=== PATIENT | male | born 1940 | race Caucasian/White ===

== ENCOUNTER 2016-12-16 10:30 | Inpatient (IN) | payer MEDICARE, BC ==
--- NOTE | 2016-12-06 12:52 | NUR ---
JOINT REPLACEMENT PREOP CLASS PATIENT ATTENDED JOINT REPLACEMENT PREOP CLASS. CASE MANAGEMENT CONTACT INFORMATION PROVIDED. EDUCATION WAS PROVIDED REGARDING WHAT TO EXPECT BEFORE, DURING AND AFTER SURGERY. INCLUDING: OVERVIEW OF ANATOMY AND PHYSIOLOGY HOSPITAL TREATMENT SCHEDULE THERAPY DEMONSTRATION CASE MANAGEMENT RESPONSIBILITIES DISCHARGE PLANNING EQUIPMENT NEEDS JOINT REPLACEMENT WORKBOOK ANTI-COAGULATION SURGERY STRONG NUTRITIONAL PROTOCOL DISCHARGE INSTRUCTIONS [facility] [place]IENT PORTAL, WITH INSTRUCTIONS CJR AND PREOP SURVERY PREOP BATHING- CHG GIVEN ALL PATIENT'S QUESTIONS ANSWERED TO THEIR SATISFACTION. PATIENTS AND COACHES ENCOURAGED TO CALL WITH ANY ADDITIONAL QUESTIONS OR CONCERNS. CM FOLLOWING FOR TRANSITIONAL CARE PLANNING NEEDS DURING HOSPITALIZATION.
--- NOTE | 2016-12-12 10:22 | NUR ---
Cancel Surgery per note from Rosa M Winkler MA, per patient request. Patient wishes to get other health issues resolved before proceeding with surgery. OR surgery scheduler notified.
[~2016-12-16] VITALS: Ht 171.4 cm; Wt 99.2 kg
[~2016-12-16 10:30] MED LIST: ACET-2930 PO; ASPI-1085 PO; BUSP15TA37 PO; GABA-338 PO; INSU300I SQ; LISI-126 PO; METF500T4 PO; SERT-88 PO; TRAM50TA4 PO; [UNRECOGNIZED DRUG - OTHER] PO
[2017-02-19] MEDS ORDERED: LISI2.5T2 PO (15:16)
--- NOTE | 2017-03-09 07:53 | HPF ---
CHIEF COMPLAINT Painful right total knee. HPI Mr. Ordaz is a 76-year-old gentleman who has had a right total knee replacement many years ago. He is complaining of increasing pain around this knee rated as moderate intensity. It is a burning pain which sometimes becomes quite severe. He has developed a persistent effusion and is reporting some weakness in the knee, X-rays have confirmed some lucency behind the anterior flange of the knee which could be consistent with loosening. Infection workup has revealed no evidence of infectious component to this. His pain is getting progressively worse and has become disabling in nature, limiting him in things that he enjoys doing. He has failed other conservative treatment and is being admitted for a revision arthroplasty of the right knee. PAST HISTORY Allergy to atenolol. PAST MEDICAL HISTORY 1. Diabetes. His last A1c was 7.7. 2. Hypertension. 3. Coronary artery disease. He has had previous intervention for this. 4. Chronic kidney disease, stage 3. Creatinine has been 1.9 to 2.1 range. GFR is generally in the 30s. 4. Depression/anxiety. 5. Generalized arthritis. CURRENT MEDICATIONS 1. Tylenol. 2. Aspirin. 3. BuSpar. 4. Neurontin. 5. Insulin. 6. Lisinopril. 7. Metformin. 8. Zoloft. 9. Ultram. 10. Isotonix. FAMILY HISTORY AND SOCIAL HISTORY Reviewed in Dr. Best's dictation in the chart. REVIEW OF SYSTEMS Negative for fever or chills, skin infections, rashes, numbness of extremity, seizures. He is not having any active anginal-type chest pain. No shortness of breath or cough. PHYSICAL EXAMINATION GENERAL: 76-year-old gentleman who is alert and oriented. He is well- nourished and well-developed. Answers questions appropriately. MUSCULOSKELETAL: Exam of the right knee shows 2+ effusion. He lacks about 5 degrees of extension and is flexing to 95 degrees. The knee is ligamentously stable to anterior-posterior drawer testing. There is no erythema. His old incision is well healed. His calf and thigh compartments are all soft and nontender. He is intact neurovascularly to the lower extremity. Has no pain with range of motion of his hip. X-RAYS Three views of the right knee show total knee arthroplasty with components in good alignment. There is some resorption under the anterior flange of the femoral component. 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 PLAN An infectious component has been ruled out. The patient has undergone medical clearance and a copy of the clearance is included in the chart. Dr. Barber has discussed the surgical procedure with Mr. Ordaz. Questions have been answered to his satisfaction. Risks, potential complications and plan have all been discussed. Will plan to proceed with a right total knee revision on 2016. NABILA
[2017-03-10] VITALS (28 sets, daily range): BP systolic 104–168; BP diastolic 56–95; PULSE 47–72; RESP 12–18; TEMP 96.7–98.3; O2SAT 94–100; Ht 171.4 cm; Wt 99.2 kg
--- OUTSIDE RECORDS SUMMARY | 2017-03-10 05:40 | XMS REPORT | Continuity of Care Document ---
Author Author [facility] Organization [facility] Address Unknown Phone Unavailable Support Name Relationship Address Phone DAIN VIZCAINO MD Caregiver [address] [place] [address] Unavailable WEN FRANCOIS DO Caregiver [address] [place] [address] Unavailable EVELYN FLYNN Next Of Kin [address] [place] [address] Insurance Providers Guarantor Ortiz Ordaz Address [address] [address] Email DENIED/NO TO PORTAL Payer Medicare Policy Number [id number] Subscriber's Name Ortiz Ordaz Relationship 18 Self Effective Date 04 Payer [facility] Policy Number [id number] Subscriber's Name Ortiz Ordaz Relationship 18 Self Group Number [id number] Group Name PLANF Effective Date 86 Advance Directives Directive Response Recorded Date/Time Ordered Resuscitation Status Full Code 05/30/16 10:09am Resuscitation Documents on File No 06/02/16 6:19am DPOA for Healthcare Only No 06/02/16 6:19am Living Will No 06/02/16 6:19am Problems Active Problems Medical Problem Onset Date Status Laceration Unknown Acute Laceration Unknown Acute Medications Current Home Medications Medication Dose Units Route Directions Days Qty Instructions Start Date Aspirin (Aspirin Ec) 81 Mg Tablet. 1 Tab Oral Daily DO NOT CHEW, CRUSH OR BREAK TABLET 05/30/16 Buspirone Hcl (Buspar) 15 Mg Tablet 15 Mg Oral Twice A Day Gabapentin 300 Mg Capsule 1 Cap Oral Three Times A Day 120 Lisinopril 20 Mg Tablet 20 Mg Oral Daily 02/26/10 Metformin Hcl 500 Mg Tablet 1 Tab Oral Twice A Day 60 05/30/16 Ondansetron Hcl (Zofran) 4 Mg Tablet 4 Mg Oral Every 6 Hours for Nausea 10 Tablet 06/02/16 Oxycodone Hcl/Acetaminophen (Percocet 5-325 Mg Tablet) 5-325 Tablet 5-10 Mg Oral Every 4 Hours Prn 60 Tablet 06/02/16 Sertraline Hcl (Zoloft) 100 Mg Tablet 50 Mg Oral Daily 12/29/12 Sitagliptin Phosphate (Januvia) 25 Mg Tablet 1 Tab Oral Daily 03/10 Thioctic Acid (Alpha Lipoic Acid) 100 Mg Capsule 100 Mg Oral Daily 03/15/14 Past Home Medications Medication Directions Ordered Status Aspirin (Aspirin Enteric Coated) 325 Mg Tablet.dr, 81 Mg Oral Daily 02/25/10 Discontinued Clopidogrel Bisulfate (Plavix) 75 Mg Tablet, 75 Mg Oral Daily 03/10/12 Discontinued Clopidogrel Bisulfate (Plavix) 75 Mg Tablet, 75 Mg Oral Daily 02/25/10 Discontinued Cyclobenzaprine Hcl 10 Mg Tablet, 10 Mg Oral Three Times A Day 12/12/10 Discontinued Fexofenadine Hcl (Loan) 180 Mg Tablet, 180 Mg Oral Daily 01/06/11 Discontinued Gabapentin 300 Mg Capsule, 300 Mg Oral Three Times A Day 03/10/12 Discontinued Glucosamine Hcl/Chondr Quintana A Na (Glucosamin/Chondrot Tb) 1 Tab Tablet, 2 Tab Oral Daily 02/25/10 Discontinued Hydrocodone Bit/Acetaminophen (Lortab 7.5) 1 Udtab Tablet, 1 - 2 Udtab Oral Every 6 Hours 12/12/10 Discontinued Naproxen Sodium (Aleve) 220 Mg Tablet, 220 Mg Oral As Needed 11/11/11 Discontinued Pregabalin (Lyrica) 75 Mg Capsule, 75 Mg Oral Twice A Day 12/29/12 Discontinued Ranitidine Hcl (Zantac 75) 75 Mg Tablet, 75 Mg Oral Daily 12/12/10 Discontinued Sertraline Hcl (Zoloft) 50 Mg Tablet, 50 Mg Oral Daily 02/26/10 Discontinued Sildenafil Citrate (Viagra) 100 Mg Tablet, 100 Mg Oral Daily 01/06/11 Discontinued Social History Social History Problem Response Recorded Date/Time Onset Date Status Reason for Hospitalization Left shoulder arthroscopy 06/02/2016 9:32am Not Applicable Not Applicable Chewing Tobacco Status No 03/15/2014 12:37pm Not Applicable Not Applicable Hx Substance Use No 06/02/2016 6:30am Not Applicable Not Applicable Hx Alcohol Use No 06/02/2016 6:30am Not Applicable Not Applicable Has the pt used tobacco in the last 12 months No 06/02/2016 6:30am Not Applicable Not Applicable Tobacco Usage none 03/15/2014 2:57pm Not Applicable Not Applicable Query Response Start Date Stop Date Smoking Status Never smoker Hospital Discharge Instructions Instructions: Care Instructions: Reason for Hospitalization: Left shoulder arthroscopy I was in the hospital because (patient own words): "left shoulder repair" Discharge Diet: 2000 darling ADA Discharge Activity: use sling, see post op sheet. Pending Lab / Results: No Pending Lab Condition at time of discharge: Good Plan of Care Discharge Date 06/02/16 10:52am Instructions/Education Provided [facility] Rotator Cuff Prescriptions See Medication Section Functional Status Query Response Date Recorded Ability to complete ADL's impeded by No change June 02, 2016 6:19am Allergies, Adverse Reactions, Alerts Allergen Type Severity Reaction Status Last Updated Atenolol Adverse Reaction Unknown LOW BP AND PULSE Active 03/15/14 Immunizations Query Response on File Recorded Date/Time Hx Influenza Vaccination Y fall 201406/02/16 6:30am Hx Pneumococcal Vaccination Y DR. FRANCOIS HAS DATE 06/02/16 6:30am Hx Tetanus, Diptheria, Pertussis Yes 03/15/14 1:20pm Hx Influenza Vaccination Y fall 201406/02/16 6:30am Hx Tetanus, Diptheria, Pertussis Yes 03/15/14 1:20pm Vital Signs Acute Vital Signs Vital Response Date/Time Temperature (Fahrenheit) 97.6 deg F (96.8 - 99.1) 06/02/2016 9:09am Temperature (Calculated Celsius) 36.59849 degrees C (36.0 - 37.3) 06/02/2016 9:09am Temperature Source Temporal 06/02/2016 9:09am Pulse Rate (adult) 68 bpm (60 - 100) 06/02/2016 10:45am Respiratory Rate 16 breaths/min (10 - 20) 06/02/2016 10:45am O2 Sat by Pulse Oximetry 98 % (90 - 100) 06/02/2016 10:45am Oxygen Delivery Method Room Air 06/02/2016 7:10am Oxygen Delivery Method Room Air 06/02/2016 10:45am Blood Pressure 127/68 mm Hg 06/02/2016 10:45am Blood Pressure Source Automatic Cuff 06/02/2016 10:45am Height (Feet) 5 feet 06/02/2016 5:45am Height (Inches) 8.00 inches 06/02/2016 5:45am Weight (Kilograms) 96.900 kg 06/02/2016 5:45am Body Mass Index (BMI) 32.5 06/02/2016 5:45am Results Laboratory Results Test Name Result Units Flags Reference Collection Date/Time Result Date/ Time Comments Body Fluid Color YELLOW 05/07/2016 2:20pm 05/07/2016 4:07pm Body Fluid Turbidity SLIGHTLY CLOUDY 05/07/2016 2:20pm 05/07/2016 4 :07pm Body Fluid Total Nucleated Cells 8149 /MM3 05/07/2016 2:20pm 2015 4:07pm Body Fluid RBC 95204 /MM3 05/07/2016 2:20pm 05/07/2016 4:07pm Body Fluid Neutrophils 60 % 05/07/2016 2:20pm 05/07/2016 4:07pm Body Fluid Lymphocytes 40 % 05/07/2016 2:20pm 05/07/2016 4:07pm Body Fluid Monocytes 0 % 05/07/2016 2:pm 05/07/2016 4:07pm Body Fluid Eosinophils 0 % 05/07/2016 2:20pm 05/07/2016 4:07pm Body Fluid Basophils 0 % 05/07/2016 2:20pm 05/07/2016 4:07pm Body Fluid Other Cells (%) 0 % 05/07/2016 2:20pm 05/07/2016 4:07pm Body Fluid Type SYNOVIAL FLUID 05/07/2016 2:20pm 05/07/2016 4:07pm White Blood Count 8.2 T/MM3 4.5-11.0 06/02/2016 6:10am 06/02/2016 6: 21am Red Blood Count 4.86 M/MM3 4.50-5.90 06/02/2016 6:10am 06/02/2016 6: 21am Hemoglobin 14.4 GM/DL 13.5-17.5 06/02/2016 6:10am 06/02/2016 6:21am Hematocrit 44.8 % 41-53 06/02/2016 6:10am 06/02/2016 6:21am Mean Corpuscular Volume 92.2 UM3 80-100 06/02/2016 6:10am 06/02/2016 6: 21am Mean Corpuscular Hemoglobin 29.6 UUG 26-34 06/02/2016 6:2015 6:21am Mean Corpuscular Hemoglobin Concent 32.1 GM/DL 31-37 06/02/2016 6:06/02/2016 6:21am RDW Standard Deviation 45.4 FL 36.9-50.2 06/02/2016 6:06/02/2016 6 :21am Platelet Count 201 T/MM3 130-400 06/02/2016 6:06/02/2016 6:21am Mean Platelet Volume 9.9 UM3 9.4-12.4 06/02/2016 6:06/02/2016 6: 21am Neutrophils (%) (Auto) 51.6 % 33-66 06/02/2016 6:06/02/2016 6: 21am Lymphocytes (%) (Auto) 36.3 % 23-45 06/02/2016 6:06/02/2016 6: 21am Monocytes (%) (Auto) 8.6 % 0-9.0 06/02/2016 6:06/02/2016 6:21am Eosinophils (%) (Auto) 2.7 % 0-4 06/02/2016 6:06/02/2016 6:21am Basophils (%) (Auto) 0.7 % 0-2 06/02/2016 6:06/02/2016 6:21am Immature Granulocyte % (Auto) 0.1 % 0.0-0.5 06/02/2016 6:2015 6:21am Absolute Neutrophils (auto) 4.2 T/MM3 1.8-7.7 06/02/2016 6:2015 6:21am Absolute Lymphocytes (auto) 3.0 T/MM3 1-4.8 06/02/2016 6:2015 6:21am Absolute Monocytes (auto) 0.7 T/MM3 0-0.8 06/02/2016 6:06/02/2016 6:21am Absolute Eosinophils (auto) 0.2 T/MM3 0-0.5 06/02/2016 6:2015 6:21am Absolute Basophils (auto) 0.1 T/MM3 0-0.2 06/02/2016 6:10a06/02/2016 6:21am Absolute Immature Granulocyte (auto 0.01 T/MM3 0.00-0.03 06/02/2016 6: 10a06/02/2016 6:21am Icterus Index < 2 0-7 06/02/2016 6:06/02/2016 6:27am Chemistry Specimen Hemolysis 34 H 0-25 06/02/2016 6:06/02/2016 6: 27am 26-70: Specimen Exhibited Slight Hemolysis - can falsely elevate K (Potassium) and Urine Protein. Turbidity < 20 0-20 06/02/2016 6:06/02/2016 6:27am Sodium Level 146 MEQ/L H 134-144 06/02/2016 6:06/02/2016 6:27am Potassium Level 5.2 MEQ/L H 3.6-5 06/02/2016 6:10a06/02/2016 6:27am Chloride Level 105 MEQ/L 98-107 06/02/2016 6:06/02/2016 6:27am Carbon Dioxide Level 29 MEQ/L 22-30 06/02/2016 6:06/02/2016 6: 27am Anion Gap 12 MEQ/L 5-15 06/02/2016 6:06/02/2016 6:27am Blood Urea Nitrogen 36.0 MG/DL H 9-20 06/02/2016 6:06/02/2016 6: 27am Creatinine 1.6 MG/DL H 0.8-1.5 06/02/2016 6:06/02/2016 6:27am BUN/Creatinine Ratio 23 RATIO 6-26 06/02/2016 6:06/02/2016 6:27am Glomerular Filtration Rate Calc 42 06/02/2016 6:06/02/2016 6: 27am Glucose Level 108 MG/DL 75-110 06/02/2016 6:06/02/2016 6:27am Calculated Osmolality 290 MOSM/KG H 261-280 06/02/2016 6:2015 6:27am Calcium Level 9.4 MG/DL 8.4-10.2 06/02/2016 6:10a06/02/2016 6:27am Total Bilirubin 0.50 MG/DL 0.20-1.30 06/02/2016 6:10am 06/02/2016 6: 27am Alkaline Phosphatase 58 U/L 38-126 06/02/2016 6:10a06/02/2016 6:27am Total Protein 7.4 G/DL 6.3-8.2 06/02/2016 6:10am 06/02/2016 6:27am Albumin 4.3 G/DL 3.5-5.0 06/02/2016 6:10a06/02/2016 6:27am Globulin 3.1 G/DL 2.4-3.6 06/02/2016 6:10am 06/02/2016 6:27am Albumin/Globulin Ratio 1.4 RATIO 1.1-2.2 06/02/2016 6:10a06/02/2016 6 :27am Aspartate Amino Transf (AST/SGOT) 20 U/L 17-59 06/02/2016 6:10am 2015 6:27am Alanine Aminotransferase (ALT/SGPT) 19 U/L L 21-72 06/02/2016 6:10am 05/2016 6:27am Glucometer 114 mg/dL H 75-110 06/02/2016 8:45am 06/02/2016 9:17am Microbiology Results Procedure Source Organism/Result Collection Date/Time Result Date/Time Result Status Body Fluid Culture Synovial Fluid, Right Knee NO GROWTH AFTER 5 DAYS 2015 2:20pm 05/12/2016 2:40pm Final Procedures Procedure Status Date Provider(s) MRI JOINT UPR EXTREM W/O DYE Completed 03/25/16 CHEST X-RAY 2VW FRONTAL&LATL Completed 04/25/16 CULTURE OTHR SPECIMN AEROBIC Completed 05/07/16 BODY FLUID CELL COUNT Completed 05/07/16 Arthroscopy of left shoulder Completed 06/02/16 DAIN VIZCAINO MD Encounters Encounter Location Arrival/Admit Date Discharge/Depart Date Attending Provider Departed [facility] 06/02/16 5:46am 06/02/16 10 :52am DAIN VIZCAINO MD [facility] 05/07/16 2:39pm FIDENCIO MONTEZ MD [facility] 04/25/16 8:16am WEN FRANCOIS DO [facility] 03/25/16 7:30am WEN FRANCOIS DO
[2017-03-10] MEDS ORDERED: METOCLOPRAMIDE 10mg/2ml INJECTION IV ONE (06:00)
[2017-03-10] MEDS ORDERED: FAMOTIDINE 20mg IVPB 50 ML IV ONE (06:00)
[2017-03-10] MEDS ORDERED: LIDOCAINE 1% (10mg/ml) 2ml SDV SQ ONE (06:00)
[2017-03-10 06:10] LABS: BASOPHILS # (AUTO) 0.1 T/MM3 (0-0.2); BASOPHILS % (AUTO) 0.6 % (0-2); EOSINOPHILS # (AUTO) 0.2 T/MM3 (0-0.5); EOSINOPHILS % (AUTO) 2.6 % (0-4); HCT - HEMATOCRIT 41.2 % (41-53); HGB - HEMOGLOBIN 13.9 GM/DL (13.5-17.5); IMMATURE GRANULOCYTE # (AUTO) 0.03 T/MM3 (0.00-0.03); IMMATURE GRANULOCYTE % (AUTO) 0.3 % (0.0-0.5); LYMPHOCYTES # (AUTO) 2.6 T/MM3 (1-4.8); LYMPHOCYTES % (AUTO) 29.1 % (23-45); MEAN CORPUSCULAR HGB 29.3 UUG (26-34); MEAN CORPUSCULAR HGB CONC(MCHC 33.7 GM/DL (31-37); MEAN CORPUSCULAR VOLUME 86.9 UM3 (80-100); MEAN PLATELET VOLUME 9.9 UM3 (9.4-12.4); MONOCYTES # (AUTO) 0.9 T/MM3 (0-0.8); MONOCYTES % (AUTO) 10.2 % (0-9.0); NEUTROPHILS % (AUTO) 57.2 % (33-66); RED BLOOD COUNT 4.74 M/MM3 (4.50-5.90); WBC - WHITE BLOOD COUNT 8.8 T/MM3 (4.5-11.0)
[2017-03-10 06:17] LABS: ALBUMIN 4.5 G/DL (3.5-5.0); ALBUMIN/GLOBULIN RATIO 1.4 RATIO (1.1-2.2); ALKALINE PHOSPHATASE 66 U/L (38-126); ALT (SGPT) 36 U/L (21-72); ANION GAP 15 MEQ/L (5-15); AST (SGOT) 16 U/L (17-59); BUN/CREATININE RATIO 24 RATIO (6-26); CALCIUM 9.7 MG/DL (8.4-10.2); CHLORIDE 107 MEQ/L (98-107); CO2 - CARBON DIOXIDE 23 MEQ/L (22-30); CREATININE 1.6 MG/DL (0.8-1.5); GLOMERULAR FILTRATION RATE 42; GLUCOSE 118 MG/DL (75-110); POTASSIUM 4.9 MEQ/L (3.6-5); SODIUM 145 MEQ/L (134-144); TOTAL PROTEIN 7.7 G/DL (6.3-8.2)
[2017-03-10] MEDS ORDERED: GENTAMICIN 80 MG/2 ML INJECTION ONE (06:32)
--- NOTE | 2017-03-10 06:32 | PDHPBRIEF ---
History and Physical Update Date DATE: 03/10/17 TIME: 06:31 I evaluated this patient and found no changes in the history and clinical exam findings. The recommendations and treatment plan is also unchanged from the previous documentation. OLIVA JURADO March 10, 2017 06:31
--- NOTE | 2017-03-10 06:49 | ANESPREOP ---
Anesthesia Record Date and Time DATE: 03/10/17 TIME: 06:47 Proposed Surgical Procedure REV RT TKA Allergies: Coded Allergies: atenolol (Verified Adverse Reaction, Unknown, LOW BP AND PULSE, 03/10/17) Ht/Wt/BMI Height: 5 ' 7.50 " Weight: 95.100 kg BMI: 32.4 kg/m2 Vital Signs Date Time Temp Pulse Resp B/P Pulse Ox O2 Delivery O2 Flow Rate FiO2 03/10/17 05:51 97.6 59 14 150/85 95 Room Air Medications Acetaminophen/Diphenhydramine (Tylenol Pm Ex-Strength Caplet) 1 Each Tablet, 1 TAB PO HS PRN for SLEEP, (Reported) Last Taken: on Unknown Date & Time Aspirin *EC* (Aspirin EC) 81 Mg Tablet.dr, 1 TAB PO PM, (Reported) DO NOT CHEW, CRUSH OR BREAK TABLET Last Taken: on 03/03/17 Buspirone Hcl (Buspar) 15 Mg Tablet, 15 MG PO BID, ( Reported) Last Taken: on 03/09/17 1800 Gabapentin (Gabapentin) 300 Mg Capsule, 300 MG PO ACBL, (Reported) TAKES 300 MG IN AM AND NOON, 600 MG IN PM Last Taken: on 03/09/17 1200 Gabapentin (Gabapentin) 300 Mg Capsule, 600 MG PO PM, (Reported) Last Taken: on 03/09/17 1800 Insulin Glargine,Hum.rec.anlog (Toujeo Solostar ) 300 Unit/1 Ml Insuln.pen, 25 UNIT SQ AM, (Reported) Last Taken: on 03/09/17 0700 Lisinopril (Lisinopril) 2.5 Mg Tablet, 2.5 MG PO DAILY, (Reported) Last Taken: on 03/09/17 0700 Metformin HCl (Metformin HCl) 500 Mg Tablet, 1 TAB PO BID, (Reported) Last Taken: on 03/09/17 1800 Sertraline Hcl (Zoloft) 100 Mg Tablet, 50 MG PO DAILY, (Reported) Last Taken: on 03/09/17 0700 Tramadol HCl (Tramadol HCl) 50 Mg Tablet, 2 TAB PO BID, (Reported) Last Taken: on 03/09/17 1800 Currently on Beta Rasheed: No Medical/Surgical History Anesthesia PMH: Reports: *Diabetes, *Hypertension, Arthritis, Renal Disease ( RENAL INSUFFICIENCY-DR ROBERSON), Denies: *Angina, *Dyspnea, *UT, Anesthesia Reactions (NO AIRWAY ISSUES KNOWN), Asthma, CHF, COPD, CVA/Stroke/TIA, Cancer, Clotting Problems, Deep Vein Thrombosis, Glaucoma, Headaches, Hepatitis, Hiatal Hernia, Malignant Hyperthermia, Pneumonia, Reflux, Rheumatic Fever, Seizures, Sleep Apnea, Thyroid Disease, Tuberculosis Smoking Status: Never smoker Has pt. smoked today?: No Use Chewing Tobacco?: No Second Hand Exposure: No Substance Use Type: does not use Alcohol Intake: none Past Surgical History Orthopedic Surgeries: Yes - RT RCR, R TKA; LT RCR Abdominal Surgeries: Yes - RT INGUINAL HERNIA Genitourinary Surgeries: No Cardiac Surgeries: Yes - HEART CATH WITH STENTS Endocrine Surgeries: No Reproductive Surgeries: No Neurological Surgeries: Yes - LAMINECTOMY Ear Surgeries: No Nose Surgeries: No Throat Surgeries: Yes - TONSILS Other Surgeries: Yes - COLONOSCOPY, UPPER BLEPHAROPLASTY; CATARACT OD Anesthesia Adverse Reactions: FOUND none Family Hx of Anesthesia Advers: none Hx of Motion Sickness: No Pertinent Findings Laboratory Tests 03/10/17 06:02 EKG Rhythm: Sinus Rhythm Physical Exam Respiratory: Lungs clear Cardiovascular: FOUND Regular rate, rhythm Airway Assessment Mallampati Score: II TMD: 3 Fingerbreadths Neck Extension: Good Overall Assessment: No Airway Concerns ASA: 3 Plan Regional: Spinal Discussion Discussed risks/options/alternatives of anesthesia and questions answered. Patient consents. Nursing pain assessment noted. Attestation Statement Prior to the delivery of any anesthetic medication, I examined the patient, developed the plan, obtained the patient's consent and discussed the risk and benefits of the procedure with the patient/guardian. REENA ARTEAGA March 10, 2017 06:49
[2017-03-10] MEDS ORDERED: VANCOMYCIN 1 GRAM INJECTION ONE ×2 (06:50→09:34)
[2017-03-10] MEDS ORDERED: NOZIN NASAL SWAB NS ONE ×2 (07:00→10:45)
[2017-03-10] MEDS ORDERED: NORMAL SALINE 1,000 ML IV ONE (07:00)
[2017-03-10] MEDS ORDERED: ONDANSETRON 4mg/2ml INJECTION IV ONE (07:00)
[2017-03-10] MEDS ORDERED: ACETAMINOPHEN 500 MG TABLET PO ONE (07:00)
[2017-03-10] MEDS ORDERED: MIDAZOLAM 2mg/2ml INJECTION ONE (07:02)
[2017-03-10] MEDS ORDERED: FENTANYL 100mcg/2ml INJECTION ONE (07:03)
[2017-03-10] MEDS ORDERED: CEFAZOLIN 2 GM VIAL IV ONE (07:30)
[2017-03-10] MEDS ORDERED: EPINEPHRINE 0.25 MG, BUPIVACAINE 0.25% 75 MG, MORPHINE SULFATE 15 MG in NORMAL SALINE 3... INJ ONE (08:00)
[2017-03-10] MEDS ORDERED: TRANEXAMIC ACID 1000 MG/10 ML TOP ONE (08:30)
[2017-03-10] MEDS ORDERED: ROPIVACAINE 0.5% (5mg/ml) 30ml INJ ONE (08:51)
[2017-03-10] MEDS ORDERED: ONDANSETRON 4mg/2ml INJECTION IV PRN ×2 (09:00→10:45)
[2017-03-10] MEDS ORDERED: FENTANYL 100mcg/2ml INJECTION IV PRN (09:00)
[2017-03-10] MEDS ORDERED: PROPOFOL 500mg 50 ML IV ONE ×2 (09:44→10:08)
--- NOTE | 2017-03-10 09:58 | NUR ---
CM CM ATTEMPTED VISIT. PT IS AT PROCEDURE. NO FAMILY PRESENT IN THE ROOM. CM CONTACT INFORMATION IS LEFT AT THE BEDSIDE.
[2017-03-10] MEDS ORDERED: PROPOFOL 500mg 100 ML IV ONE (10:07)
[2017-03-10] MEDS ORDERED: SENNOSIDES 8.6 MG TABLET PO PRN (10:45)
[2017-03-10] MEDS ORDERED: DiphenhydrAMINE 25 MG CAPSULE PO PRN (10:45)
[2017-03-10] MEDS ORDERED: PRN ORDERS MC (10:45)
[2017-03-10] MEDS ORDERED: LORAZEPAM 1 MG TABLET PO PRN (10:45)
[2017-03-10] MEDS ORDERED: DiphenhydrAMINE 50 MG/ML INJECTION IV PRN (10:45)
--- NOTE | 2017-03-10 11:06 | ANESPD ---
Peripheral Nerve Blockade Physician: Cesar Barber MD Date: 03/10/17 Discussion Discussed risks/options/alternatives of anesthesia and questions answered. Patient consents. Nursing pain assessment noted. Block Start: 10:43 Block Stop: 10:53 Block Employed: Adductor Canal Indication: post-operative pain Approach: right side confirmed Position: supine Patient: Consent, risks/benefits discussed, Informed, post block act. discussed Monitors: EKG, SpO2, NIBP Initial Vital Signs First Documented Vital Signs Date Time Temp Pulse Resp B/P Pulse Ox O2 Delivery O2 Flow Rate FiO2 03/10/17 05:51 97.6 59 14 150/85 95 Room Air Post Vital Signs Vital Signs Date Time Temp Pulse Resp B/P Pulse Ox O2 Delivery O2 Flow Rate FiO2 03/10/17 05:51 97.6 59 14 150/85 95 Room Air Initial Pain Score: 0 Post Block Score: 0 Prep: chlorhexadine/ETOH Ultrasound Used?: Yes Injectate Ropivacaine (%): 0.5 Ropivacaine (mL): 15 Was Epi 1:200,000 Used?: No Injection Injection made incrementally with constant monitoring and aspiration every [3] ml. REENA ARTEAGA March 10, 2017 11:06
--- NOTE | 2017-03-10 11:32 | ANESPO ---
Post-Op Note Date 03/10/17 Time: 11:30 Status Pt Participated in Evaluation: Pt participated in person Vital Signs Date Time Temp Pulse Resp B/P Pulse Ox O2 Delivery O2 Flow Rate FiO2 03/10/17 11:21 16 03/10/17 11:10 48 106/60 97 Nasal Cannula 2.00 03/10/17 10:43 98.3 Respiratory Function: Airway patent, Regular respirations Cardiovascular Function: Regular pulse Mental Status: Alert/oriented Pain Level Intensity: 3 Hydration: IV infusing Complications during Recovery None apparent Follow-Up Instructions Instructions Per Surgeon BREN RENNER CRNA March 10, 2017 11:32
--- NOTE | 2017-03-10 11:35 | DI ---
Indication: ITS.REASON: POSTOP right knee revision PROCEDURE: KNEE RIGHT 2 VIEW: Encounter: Initial Comparison: January 19, 2013 Findings: Postoperative changes of right total knee revision are seen with extended femoral and tibial components. There is expected postoperative subcutaneous gas. No evidence of hardware failure or acute fracture. No retained radiopaque surgical instruments or sponges. Overlying material causing artifact. Impression: Revision right total knee prosthesis without evidence of immediate complication. .
--- NOTE | 2017-03-10 11:41 | NUR ---
ARRIVAL TO FLOOR THE PT ARRIVED TO THE FLOOR AT THIS TIME. PT TRANSFERRED SELF FROM THE CART TO THE BED WITH MINIMAL ASSISTANCE. POST OP VITAL SIGNS STARTED, PT IS BRADYCARDIC IN THE 50S AT THIS TIME. PER REPORT FROM OYSTER OPENER, PT HAD DECREASED HEART RATE IN THE 50S PRE-OP. PT IS ACCOMPANIED BY HIS , PRESENT IN THE ROOM AT THIS TIME. WILL CONTINUE TO MONITOR.
[2017-03-10] MEDS: NORMAL SALINE 1,000 ML IV SCH ×2 (12:01→16:49)
--- NOTE | 2017-03-10 12:02 | PDPROCED ---
Immediate Operative Note DATE: 03/10/17 TIME: 12:01 Preop Diagnosis: PAINFUL RIGHT TOTAL KNEE ARTHROPLASTY Postop Diagnosis: Painful right TKA Surgical Procedures: Other (Right total knee revision. All components.) Surgeon: Elisabeth Metal Polisher: HECTOR Pillai Anesthesia: Regional Complications: NONE OLIVA JURADO March 10, 2017 12:02
[2017-03-10] MEDS: OXYCODONE I.R. 5 MG TABLET PO PRN ×3 (12:13→17:18)
--- NOTE | 2017-03-10 12:22 | NUR ---
PAIN CONTROL PT REPORTING PAIN IN RIGHT KNEE, RATING A 6/10 AT THIS TIME. PT HAS TOLERATED JELLO AND CRACKERS WELL, DENIES NAUSEA. PT WAS GIVEN ROXICODONE 10MG. NO OTHER CONCERNS NOTED. WILL CONTINUE TO MONITOR.
[2017-03-10] MEDS: GABAPENTIN 300 MG CAPSULE PO SCH (12:46)
[2017-03-10] MEDS: ACETAMINOPHEN 325 MG TABLET PO SCH ×3 (12:46→20:58)
[2017-03-10] MEDS: NOZIN NASAL SWAB NS SCH ×2 (14:05→20:58)
[2017-03-10] MEDS: CEFAZOLIN 2 G in NORMAL SALINE 100 ML IV SCH ×2 (15:24→23:47)
[2017-03-10] MEDS: INSULIN ASPART 100 UNIT/ML SQ PRN ×2 (17:17→20:58)
--- NOTE | 2017-03-10 17:49 | OPNOTEF ---
DATE OF OPERATION 03/10/2017 PREOPERATIVE DIAGNOSIS Painful right total knee arthroplasty. 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 PROCEDURE Right total knee arthroplasty revision. SURGEON Shira Barber MD INTELLIGENCE OPERATIONS SPECIALIST Cesar Escamilla PA-C COMPLICATIONS None. ANESTHESIA Spinal. DESCRIPTION OF PROCEDURE Mr. Ordaz and his right knee were identified and marked in the preoperative holding area. He was brought back to the operative suite and placed supine on the operating table. After spinal anesthetic was administered the right lower extremity was then prepped and draped in my normal sterile fashion. Timeout was performed. Mr. Ordaz had limited motion from about 10 degrees to 90 degrees and a large effusion. Sharp dissection was made anteriorly followed by a medial peripatellar arthrotomy. He had abundant scar tissue which was removed at the anterior knee. No signs of infection. While dissecting the soft tissue around the patella the patella easily essentially fell off from the bone. I found similar results when removing the femoral and tibial components. It took just minimal dissection for the components to come off easily. Neither component had any significant amount of cement adhered. Once cement was removed from remaining bone, the tibia had very minimal bone loss and. The femur had bone loss mainly because there was a large cyst in the lateral femoral condyle. After further releases were performed, to allow for more exposure I did make a freshen-up cut with an IM sabine over the tibia. The tibia was incised and we did not need an offset. We then moved to the femur. Again, the IM sabine was placed up to a 17 and a distal femoral cut was freshened up. It looked like laterally we would need a 5-mm augment. Also the same posterolaterally. With a 100-mm 17 stem, size 4 trial components were placed with the augments as described. This had a good fit with a PS 9-mm spacer. It lacked about 3 degrees of full extension but flexion was past 115 degrees. The knee was nice and stable. The patella was then resurfaced and drilled again for a 32 button. The patella tracked well. After thorough irrigation the bone was prepared for cementing. The components were cemented into place with the 100-mm stem on the tibia and 100-mm stem also on the femur. The tibia and femur were both size 4. The patella was size 32. After the cement had cured I trialed with a PS Plus and liked this a little better so we ended up placing a 9-mm PS Plus spacer. A very small amount of the tibial tubercle attachment from the patellar tendon did rip during the exposure. I repaired this back down to a bone hole using FiberWire. Betadine solution was used as well as IrriSept during the case and joint cocktail was injected into the soft tissues throughout the case. 1 g TXA was placed into the knee and allowed to sit for five minutes into the case. 1 g vancomycin powder was placed into the knee and the capsulotomy was closed with #1 Vicryl. I then left my bilingual sales assistant to close the subcutaneous tissue with 2-0 Vicryl followed by running 4-0 Monocryl in skin and a sterile dressing. He will be taken to the recovery room under the care of Anesthesia. He tolerated the procedure well. There were no complications. NABILA
--- NOTE | 2017-03-10 18:57 | NUR ---
PROGRESS NOTE PT ALERT AND ORIENTED X3. VITAL SIGNS STABLE, PT IS ON RA. THE PT HAS REQUIRED 2 DOSES OF ROXICODONE SINCE ARRIVING TO THE FLOOR FOR INCREASED PAIN. THE PT HAD DIFFICULTY CONTROLLING PAIN UPON ARRIVAL BUT HAS TOLERATED THE ROXICODONE WELL. PT HAS HAD ADEQUATE URINE OUTPUT AND HAS TOLERATED A CONSISTENT CARB DIET. THE PT IS UP WITH A X1 ASSIST, GAIT BELT AND WALKER. PT IS RESTING IN THE RECLINER AT THIS TIME, WILL CONTINUE TO MONITOR.
[2017-03-10] MEDS ORDERED: GABAPENTIN 300 MG CAPSULE PO SCH (20:00)
[2017-03-10] MEDS: ASPIRIN *EC* 325mg TABLET PO SCH (20:58)
[2017-03-10] MEDS ORDERED: SENNOSIDES 8.6 MG TABLET PO SCH (22:00)
--- NOTE | 2017-03-10 22:10 | HPF ---
Support Level Std System Name [id number] Script on [id number] Fanta IP: [id number] System Description Inbound ITS Reports Script System Group [employer] Scripts Chas[employer] Client Direct Web Service Consumer Version 1.0.796 Last Heartbeat 03/10/2017 11:08:22 PM NABILA
[2017-03-11] MEDS: OXYCODONE I.R. 5 MG TABLET PO PRN ×3 (01:08→12:42)
[2017-03-11 03:56] VITALS: BP 151/80; PULSE 60; RESP 20; TEMP 97.9; O2SAT 97
--- NOTE | 2017-03-11 04:12 | NUR ---
SHIFT SUMMARY PT ALERT AND ORIENTED X3, VITAL SIGNS ARE STABLE ON ROOM AIR. DENIES C/P, N/V AND SOA. PT HAS AMBULATED ONCE ON THIS SHIFT AND TO AND FROM THE BATHROOM. PT HAS HAD ADEQUATE URINE OUTPUT. PT HAS SLEPT WELL THROUGH THE NIGHT THEN MOVED TO THE CHAIR IN EARLY A.M. WILL CONTINUE TO MONITOR.
[2017-03-11 04:47] LABS: HCT - HEMATOCRIT 39.1 % (41-53); HGB - HEMOGLOBIN 12.7 GM/DL (13.5-17.5); MEAN CORPUSCULAR HGB 28.5 UUG (26-34); MEAN CORPUSCULAR HGB CONC(MCHC 32.5 GM/DL (31-37); MEAN CORPUSCULAR VOLUME 87.7 UM3 (80-100); MEAN PLATELET VOLUME 11.3 UM3 (9.4-12.4); RED BLOOD COUNT 4.46 M/MM3 (4.50-5.90); WBC - WHITE BLOOD COUNT 12.7 T/MM3 (4.5-11.0)
[2017-03-11 04:56] LABS: ANION GAP 16 MEQ/L (5-15); BUN/CREATININE RATIO 22 RATIO (6-26); CALCIUM 8.2 MG/DL (8.4-10.2); CHLORIDE 104 MEQ/L (98-107); CO2 - CARBON DIOXIDE 21 MEQ/L (22-30); CREATININE 1.3 MG/DL (0.8-1.5); GLOMERULAR FILTRATION RATE 54; GLUCOSE 129 MG/DL (75-110); POTASSIUM 4.7 MEQ/L (3.6-5); SODIUM 141 MEQ/L (134-144)
[2017-03-11] MEDS: NORMAL SALINE 1,000 ML IV SCH (05:13)
[2017-03-11] MEDS: NOZIN NASAL SWAB NS SCH ×2 (06:00→14:09)
[2017-03-11] MEDS: GABAPENTIN 300 MG CAPSULE PO SCH ×2 (06:00→12:12)
[2017-03-11 07:05] VITALS: PULSE 60; RESP 20
[2017-03-11 07:24] VITALS: BP 141/84; PULSE 68; RESP 16; TEMP 97.7; O2SAT 97
--- NOTE | 2017-03-11 07:41 | PDORTHOPN ---
Subjective Date DATE: 03/11/17 TIME: 07:37 Subjective Ortiz is doing very well. He has walked moderate distances. [place] the knee wanted to give out while standing yesterday. No CP, cough or SOA. No n/v. Objective Vital Signs Vital signs Vital Signs 03/10/17 03/10/17 03/10/17 03/11/17 21:17 22:00 23:25 03:56 Temp 96.9 97.9 Pulse 68 72 60 Resp 16 18 20 B/P 157/78 151/80 Pulse Ox 97 97 O2 Delivery Nasal Cannula Room Air Room Air O2 Flow Rate 2.00 03/11/17 03/11/17 07:05 07:24 Temp 97.7 Pulse 60 68 Resp 20 16 B/P 141/84 Pulse Ox 97 O2 Delivery Room Air Height (Feet): 5 Height (Inches): 7.50 Weight (Kilograms): 98.200 General General Appearance: No Acute Distress Respiratory (Brief) Respiratory Brief: FOUND: non-labored Cardiovascular (Brief) Cardiac: FOUND: calf soft, nontender, pedal pulses intact Surgical Site Incision: FOUND: Mepilex dressing intact, no drainage Neurologic (Brief) Neurological Brief: FOUND: extremities w/o deficits, neuro intact Psychiatric (Brief) Psychiatric Brief: FOUND: alert, no acute distress Laboratory Laboratory Laboratory Tests 03/10/17 06:02 03/11/17 04:10 Laboratory Tests 03/10/17 06:02 03/11/17 04:09 Assessment & Plan Problems: (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 Pt is afebrile and has no S/SX of infection. ASA , SCDs and mobilization for DVT prevention. Case Mgmt for discharge planning. (2) Chronic kidney disease (CKD) Status: Chronic Qualifiers: Chronic kidney disease stage: stage 3 (moderate) Qualified Codes: N18.3 - Chronic kidney disease, stage 3 (moderate) Assessment & Plan: Renal status improved with IVF. Avoid nsaids Prevent hypotension Monitor. (3) Diabetes Status: Chronic Assessment & Plan: Resume oral meds. carb controlled diet. monitor BGM's Hospital Course Summary Disclaimer The visit summary below is not to be considered part of the above Progress Note. OLIVA JURADO March 11, 2017 07:41
[2017-03-11] MEDS ORDERED: INSULIN GLARGINE HUM REC ANLOG 25 UNIT SQ SCH (07:45)
[2017-03-11] MEDS ORDERED: METFORMIN 500 MG TABLET PO SCH (08:00)
--- NOTE | 2017-03-11 08:35 | NUR ---
CM CM IN TO VISIT WITH PT. HE IS ALERT AND ORIENTED. HE PLANS TO RETURN HOME. HE HAS FWW. HE WOULD LIKE TO DO OUTPT PT AT [facility] WITH THE SAME THERAPIST THAT HE USED IN THE PAST. HE IS MADE AWARE THAT CM CAN'T GUARANTEE THE SAME THERAPIST BUT WILL REQUEST IT. HE IS GIVEN CM CONTACT INFORMATION. LACE SCORE IS 8. Addendum: 03/11/17 at 0837 by SACHI DHALIWAL RN Amended: Links added.
[2017-03-11] MEDS ORDERED: LISINOPRIL 2.5 MG TABLET PO SCH (09:00)
[2017-03-11] MEDS ORDERED: POLYETHYL.GLYCOL 3350 PACKET 17gm PO SCH (09:00)
[2017-03-11] MEDS ORDERED: SERTRALINE 50 MG TABLET PO SCH (09:00)
[2017-03-11] MEDS ORDERED: DOCUSATE SODIUM 100 MG CAPSULE PO SCH (09:00)
[2017-03-11] MEDS: ASPIRIN *EC* 325mg TABLET PO SCH (09:46)
[2017-03-11] MEDS: ACETAMINOPHEN 325 MG TABLET PO SCH ×2 (09:47→12:13)
[2017-03-11] MEDS: INSULIN ASPART 100 UNIT/ML SQ PRN ×2 (10:08→14:09)
[2017-03-11 12:00] VITALS: PULSE 89; RESP 16; TEMP 98.9; O2SAT 99
[2017-03-11] MEDS ORDERED: OXYC5TAB84 PO (13:41)
[2017-03-11] MEDS ORDERED: ASPI-917 PO (13:41)
[2017-03-11] MEDS ORDERED: ACET-2321 PO (13:41)
[2017-03-11] MEDS ORDERED: POLY17PO18 PO (13:41)
--- NOTE | 2017-03-11 14:01 | DSPDOC ---
General Date Date DATE: 03/11/17 TIME: 13:59 Attending Physician Cesar Barber MD Admitting Physician Cesar Barber MD Consulting Physician Admitting Diagnosis PAINFUL RIGHT TOTAL KNEE ARTHROPLASTY Discharge Diagnosis Painful right TKA Procedures Right knee revision TKA Diagnosis Painful right TKA History of Present Illness HPI Elements This patient was admitted for elective surgical tx of a painful right total knee replacement that failed to respond to conservative treatment. Further details of this is found in the admission H&P. Hospital Course After appropriate preoperative clearance and signing of operative consent, the patient was given IV antibiotics, according to orthopedic protocol. The patient was taken to the operating room and underwent elective joint arthroplasty. Following surgery, antibiotics were discontinued less than 24 hours according to joint protocol. Appropriate anticoagulants were initiated and SCDs added for DVT prevention. The dressing was clean, dry, and intact. Pain control was obtained via multimodal approach. Bowel motivation addressed with scheduled and PRN medications. Early mobilization was initiated through PT services. Discharge arrangements made by a collaborative effort between the patient and Case Management. Follow-up is scheduled in 2-3 weeks. Discharge instructions given by orthopedic providers and nursing staff at discharge. Discharge condition was good. 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 Pt is afebrile and has no S/SX of infection. ASA , SCDs and mobilization for DVT prevention. Case Mgmt for discharge planning. (2) Chronic kidney disease (CKD) Status: Chronic Assessment & Plan: Renal status improved with IVF. Avoid nsaids Prevent hypotension Monitor. (3) Diabetes Status: Chronic Assessment & Plan: Resume oral meds. carb controlled diet. monitor BGM's Associated Postoperative Event: Acute P.O. Anemia Ongoing Care Required?: No Acute P.O. Anemia: Patient received IVF, Labs monitored daily, No intervention required, HGB drop-acceptable range Leukocytosis: d/t surg. stress response Laboratory Laboratory Tests Test 03/10/17 14:10 03/10/17 16:38 03/10/17 19:57 03/11/17 04:09 Glucometer 168mg/dL 161mg/dL 192mg/dL Turbidity < 20 Sodium Level 141MEQ/L Potassium Level 4.7MEQ/L Chloride Level 104MEQ/L Carbon Dioxide Level 21MEQ/L Anion Gap 16MEQ/L Blood Urea Nitrogen 29.0MG/DL Creatinine 1.3MG/DL Glomerular Filtration Rate Calc 54 BUN/Creatinine Ratio 22RATIO Glucose Level 129MG/DL Calculated Osmolality 279MOSM/KG Calcium Level 8.2MG/DL Icterus Index < 2 Chemistry Specimen Hemolysis 54 Test 03/11/17 04:10 03/11/17 10:01 White Blood Count 12.7T/MM3 Red Blood Count 4.46M/MM3 Hemoglobin 12.7GM/DL Hematocrit 39.1% Mean Corpuscular Volume 87.7UM3 Mean Corpuscular Hemoglobin 28.5UUG Mean Corpuscular Hemoglobin Concent 32.5GM/DL RDW Standard Deviation 42.5FL Platelet Count 191T/MM3 Mean Platelet Volume 11.3UM3 Glucometer 184mg/dL Home Meds Active Scripts Polyethylene Glycol 3350 (Healthylax) 17 Gm Powd.pack, 17 G PO DAILY, #30 PACKET Prov:BECKY MCMANUS 03/11/17 Oxycodone HCl (Oxycodone HCl) 5 Mg Tablet, 5-15 MG PO Q3H Y for BREAKTHROUGH PAIN, #60 TAB Prov:BECKY MCMANUS 03/11/17 Aspirin *EC* (Aspirin EC) 325 Mg Tablet.dr, 325 MG PO BID, #84 TAB Prov:BECKY MCMANUS 03/11/17 Acetaminophen (Tylenol) 325 Mg Tablet, 650 MG PO QID, #100 TAB Prov:BECKY MCMANUS 03/11/17 Reported Medications Lisinopril (Lisinopril) 2.5 Mg Tablet, 2.5 MG PO DAILY for HYPERTENSION, TAB 02/19/17 Acetaminophen/Diphenhydramine (Tylenol Pm Ex-Strength Caplet) 1 Each Tablet, 1 TAB PO HS Y for SLEEP 11/26/16 Insulin Glargine,Hum.rec.anlog (Nina Morris) 300 Unit/1 Ml Insuln.pen, 25 UNIT SQ AM 11/26/16 Tramadol HCl (Tramadol HCl) 50 Mg Tablet, 2 TAB PO BID 11/26/16 Gabapentin (Gabapentin) 300 Mg Capsule, 600 MG PO PM, CAP 11/26/16 Metformin HCl (Metformin HCl) 500 Mg Tablet, 1 TAB PO BID 05/30/16 Gabapentin (Gabapentin) 300 Mg Capsule, 300 MG PO ACBL TAKES 300 MG IN AM AND NOON, 600 MG IN PM 05/30/16 Aspirin *EC* (Aspirin EC) 81 Mg Tablet.dr, 1 TAB PO PM, TAB DO NOT CHEW, CRUSH OR BREAK TABLET 05/30/16 Sertraline Hcl (Zoloft) 100 Mg Tablet, 50 MG PO DAILY 12/29/12 Buspirone Hcl (Buspar) 15 Mg Tablet, 15 MG PO BID 02/26/10 Discharge Disposition Please refer to Case Management Notes for patient's disposition. Estimated Blood Loss 50.0 BECKY MCMANUS March 11, 2017 14:01
--- NOTE | 2017-03-11 16:35 | NUR ---
DISCHARGE PT DISCHARGED TO HOME IN GOOD CONDITION. PACKET REVIEWED WITH PATIENT AND . QUESTIONS ANSWERED AND PT VERBALIZED UNDERSTANDING. PRESCRIPTIONS GIVEN TO . BELONGINGS SENT WITH PATIENT. PT EXITED THROUGH ER ENTRANCE ACCOMPANIED BY AND NURSING STAFF.
[2017-03-12] MEDS ORDERED: MILK OF MAGNESIA 30 ML SUSP PO SCH (08:00)
--- NOTE | 2017-03-12 11:56 | NUR ---
CALLED FOR POST HOSPITAL FOLLOW UP CALL, ASKED THE FOLLOWING QUESTIONS FOR DR MONTEZ. 1. PAIN AT REST: 3-4 2. PAIN WITH EXERCISE: 5-6, "NOT ALOT OF PAIN" 3. ANTICOAGULATION: ASA 325MG BID 4. PAIN MEDS: TYLENOL 650MG QID AND OXY 5. BM: YES
[2017-03-12] MEDS ORDERED: BISACODYL 10 MG SUPPOSITORY RECTALLY SCH (20:00)
== END 2017-03-11 15:44 | disposition home or self-care (01) | DRG 468 ==
LOC: SRG 03-10 05:35
PROVIDERS: ADMIT Orthopaedic Surgery; ATTEND Orthopaedic Surgery
PROC: 0SPC0JZ Removal of Synthetic Substitute from Right Knee Joint, Open Approach (ICD-10-PCS; 2017-03-10)
PROC: 0SRC0J9 Replacement of Right Knee Joint with Synthetic Substitute, Cemented, Open Approach (ICD-10-PCS; principal; 2017-03-10 07:38)
DX: T84.032A Mechanical loosening of internal right knee prosthetic joint, initial encounter (principal); T84.84XA Pain due to internal orthopedic prosthetic devices, implants and grafts, initial encounter; Y83.8 Other surgical procedures as the cause of abnormal reaction of the patient, or of later complication, without mention of misadventure at the time of the procedure; Z96.651 Presence of right artificial knee joint; I12.9 Hypertensive chronic kidney disease with stage 1 through stage 4 chronic kidney disease, or unspecified chronic kidney disease; E11.22 Type 2 diabetes mellitus with diabetic chronic kidney disease; N18.3 Chronic kidney disease, stage 3 (moderate); I25.10 Atherosclerotic heart disease of native coronary artery without angina pectoris; F32.9 Major depressive disorder, single episode, unspecified; F41.9 Anxiety disorder, unspecified; M15.9 Polyosteoarthritis, unspecified; Z79.82 Long term (current) use of aspirin; Z79.4 Long term (current) use of insulin; Z79.84 Long term (current) use of oral hypoglycemic drugs
CPT/HCPCS: 36415; 80048; 80053; 82948; 85025; 85027